=== PATIENT | female | born 1950 | race Asian ===

== ENCOUNTER 2024-01-17 16:24 | Inpatient (IN) | payer OTHER, MEDICAID ==
[~2024-01-17] VITALS: Ht 157.5 cm; Wt 55.8 kg
[2024-01-17 16:27] VITALS: BP_SYST 150; PULSE 92; RESP 18; TEMP 98.3; O2SAT 98
[2024-01-17] MEDS ORDERED: iohexoL 350 mgI/mL, 100 ML INFUS..BTL IV ONE (16:35)
[2024-01-17] MEDS ORDERED: ATOR10TA68 PO (17:13)
[2024-01-17] MEDS ORDERED: ALEN70TA27 PO (17:13)
[2024-01-17] MEDS ORDERED: COLL100 PO (17:13)
[2024-01-17] MEDS ORDERED: CARB200T8 PO (17:13)
[2024-01-17] MEDS ORDERED: ANAS1TAB51 (17:13)
[2024-01-17] MEDS ORDERED: CALC-823 PO (17:13)
[2024-01-17] MEDS ORDERED: AMLO10TA88 PO (17:13)
[2024-01-17] MEDS ORDERED: BISA-140 PO (17:13)
[2024-01-17] MEDS ORDERED: ANAS1TAB51 PO (17:13)
[2024-01-17] MEDS ORDERED: ASPI-1393 PO (17:13)
[2024-01-17 17:20] LABS: BASOPHILS # (AUTO) 0.2 K/uL (0.0-0.2); BASOPHILS % (AUTO) 0.9 % (0.0-2.0); EOSINOPHILS # (AUTO) 0.1 K/uL (0.0-0.4); EOSINOPHILS % (AUTO) 0.4 % (0.0-4.0); HEMATOCRIT 35.2 % (36-48); HEMOGLOBIN 11.9 g/dL (12.0-16.0); LYMPHOCYTES # (AUTO) 3.4 K/uL (1.0-5.5); LYMPHOCYTES % (AUTO) 17.3 % (20.5-51.5); MEAN CORPUSCULAR HEMOGLOBIN 30 pg (27-31); MEAN CORPUSCULAR HGB CONC 34 % (32-36); MEAN CORPUSCULAR VOLUME 90 fL (79.0-98.0); MONOCYTES # (AUTO) 1.4 K/uL (0.0-1.0); MONOCYTES % (AUTO) 7.2 % (1.7-9.3); NEUTROPHILS # (AUTO) 14.7 K/uL (1.8-7.7); NEUTROPHILS % (AUTO) 74.2 % (40.0-70.0); PLATELET COUNT (AUTO) 432 K/uL (130-430); RED BLOOD CELL COUNT(AUTO) 3.93 MIL/uL (4.2-6.2); RED CELL DISTRIBUTION WIDTH 13.5 % (9.0-15.0); WHITE BLOOD COUNT (AUTO) 19.8 K/uL (4.8-10.8)
[2024-01-17] MEDS ORDERED: LEVE500T21 PO (17:23)
[2024-01-17] MEDS ORDERED: LORA-258 PO (17:23)
[2024-01-17] MEDS ORDERED: NITSL SL (17:23)
[2024-01-17] MEDS ORDERED: LOSA100T24 PO (17:23)
[2024-01-17] MEDS ORDERED: METO-442 PO (17:23)
[2024-01-17] MEDS ORDERED: FAMO20TA8 PO (17:23)
[2024-01-17] MEDS ORDERED: OXYIR5 PO (17:23)
[2024-01-17] MEDS ORDERED: MAGN24002 PO (17:26)
[2024-01-17] MEDS ORDERED: SODI1TAB3 PO (17:26)
[2024-01-17 17:35] LABS: HEMOGLOBIN A1C 5.83 % (<5.7); PROTHROMBIN TIME 10.7 SECS (9.5-12.5)
[2024-01-17 17:41] LABS: ANION GAP 7 (5-15); CALCIUM 8.9 mg/dL (8.4-11.0); CARBON DIOXIDE 29 mmol/L (23-29); CHLORIDE 105 mmol/L (98-107); CREATININE 0.56 mg/dL (0.55-1.30); GLUCOSE 128 mg/dL (74-106); SODIUM SERUM 141 mmol/L (136-145); UREA NITROGEN, BLOOD 12 mg/dL (8-21)
[2024-01-17 17:43] LABS: POTASSIUM 2.9 mmol/L (3.5-5.1)
[2024-01-17] MEDS: KCL 40 mEq in 100 mL (PREMIX) 100 ML IV ONE (18:00)
[2024-01-17 19:02] LABS: BILIRUBIN,URINE NEGATIVE (NEGATIVE); BLOOD, URINE NEGATIVE (NEGATIVE); CLARITY/URINE CLEAR (CLEAR); COLOR,URINE YELLOW (YELLOW); GLUCOSE,URINE NEGATIVE (NEGATIVE); KETONES,URINE NEGATIVE (NEGATIVE); LEUKOCYTE ESTERASE ,URINE NEGATIVE (NEGATIVE); NITRITE, URINE NEGATIVE (NEGATIVE); PH,URINE 7.5 (5.0-8.0); PROTEIN URINE NEGATIVE (NEGATIVE); UROBILINOGEN,URINE 0.2 (0.2-1.0)
[2024-01-17 19:11] LABS: BARBITURATE, URINE NEGATIVE (NEG <=200); BENZODIAZEPINE, URINE POSITIVE (NEG <=150); CANNABINOID, URINE NEGATIVE (NEG <=50); COCAINE, URINE NEGATIVE (NEG <=150); METHAMPHETAMINES SCREEN,URINE NEGATIVE (NEG <=500); OPIATE, URINE NEGATIVE (NEG <=100); PHENCYCLIDINE SCREEN,URINE NEGATIVE (NEG <=25); UR TRICYCLIC ANTIDEPRESSANTS NEGATIVE (NEG <=300); URINE AMPHETAMINE NEGATIVE (NEG <=500); URINE METHADONE NEGATIVE (NEG <=200); URINE OXYCODONE SCREEN NEGATIVE (NEG <=100)
[2024-01-17] MEDS ORDERED: KCL 20 mEq in 100 mL (PREMIX) 200 ML IV ONE (19:14)
[2024-01-17 20:40] VITALS: BP_SYST 149; PULSE 90; RESP 16; TEMP 98.5; O2SAT 97
[2024-01-17 20:55] VITALS: BP_SYST 149; PULSE 9; RESP 16; TEMP 98.5; O2SAT 96
[2024-01-17] MEDS: levETIRAcetam 1,000 MG in NS 100 ML IV ONE (22:22)
[2024-01-17] MEDS ORDERED: HYDROcodone/ACETAMIN 5-325 MG TAB (NORCO/ VICODIN) PO PRN (22:45)
[2024-01-17] MEDS ORDERED: BISACODYL 5 MG TABLET.DR (DULCOLAX) PO PRN (22:45)
[2024-01-17] MEDS ORDERED: NALOXONE HCL 0.4 MG/ML AMP (NARCAN) IVP PRN ×2 (22:45)
[2024-01-17] MEDS ORDERED: LORazepam 2 MG/ML VIAL IVP PRN (22:45)
[2024-01-17] MEDS ORDERED: ONDANSETRON HCL 4 MG/2 ML VIAL IVP PRN (22:45)
[2024-01-17] MEDS ORDERED: ACETAMINOPHEN 325 MG TABLET PO PRN (22:45)
[2024-01-17] MEDS ORDERED: NITROGLYCERIN 0.4 MG TAB.SUBL SL PRN (22:45)
[2024-01-17] MEDS ORDERED: HYDROcodone/ACETAMIN 10-325 MG TAB PO PRN (22:45)
[2024-01-18 04:00] VITALS: BP_SYST 130; PULSE 105; RESP 16; TEMP 97.6; O2SAT 96
[2024-01-18] MEDS: NORMAL SALINE 5 ML DISP.SYRIN IVF SCH (05:17)
[2024-01-18 07:39] LABS: BASOPHILS # (AUTO) 0.1 K/uL (0.0-0.2); BASOPHILS % (AUTO) 0.6 % (0.0-2.0); EOSINOPHILS # (AUTO) 0.2 K/uL (0.0-0.4); HEMATOCRIT 35.3 % (36-48); HEMOGLOBIN 11.8 g/dL (12.0-16.0); LYMPHOCYTES # (AUTO) 2.3 K/uL (1.0-5.5); LYMPHOCYTES % (AUTO) 12.7 % (20.5-51.5); MEAN CORPUSCULAR HEMOGLOBIN 30 pg (27-31); MEAN CORPUSCULAR HGB CONC 34 % (32-36); MEAN CORPUSCULAR VOLUME 90 fL (79.0-98.0); MONOCYTES # (AUTO) 1.3 K/uL (0.0-1.0); MONOCYTES % (AUTO) 7.1 % (1.7-9.3); NEUTROPHILS # (AUTO) 14.4 K/uL (1.8-7.7); NEUTROPHILS % (AUTO) 78.6 % (40.0-70.0); PLATELET COUNT (AUTO) 451 K/uL (130-430); RED BLOOD CELL COUNT(AUTO) 3.91 MIL/uL (4.2-6.2); RED CELL DISTRIBUTION WIDTH 13.5 % (9.0-15.0); WHITE BLOOD COUNT (AUTO) 18.4 K/uL (4.8-10.8)
[2024-01-18 08:04] LABS: ANION GAP 13 (5-15); CALCIUM 8.6 mg/dL (8.4-11.0); CARBON DIOXIDE 25 mmol/L (23-29); CHLORIDE 105 mmol/L (98-107); CREATININE 0.51 mg/dL (0.55-1.30); GLUCOSE 136 mg/dL (74-106); SODIUM SERUM 143 mmol/L (136-145); UREA NITROGEN, BLOOD 10 mg/dL (8-21)
[2024-01-18 08:16] LABS: POTASSIUM 2.8 mmol/L (3.5-5.1)
[2024-01-18 08:28] VITALS: BP_SYST 143; PULSE 114; RESP 18; TEMP 98.2; O2SAT 94
[2024-01-18] MEDS ORDERED: SODIUM CHLORIDE 1 GM PO SCH (09:00)
[2024-01-18] MEDS: ASPIRIN 81 MG TABLET(ECOTRIN) PO SCH (09:34)
[2024-01-18] MEDS: LOSARTAN POTASSIUM 50 MG TABLET (COZAAR) PO SCH (09:34)
[2024-01-18] MEDS: ANASTROZOLE 1 MG TABLET (ARIMIDEX) PO SCH (09:35)
[2024-01-18] MEDS: amLODIPine BESYLATE 10 MG TABLET PO SCH (09:35)
[2024-01-18] MEDS: DOCUSATE SODIUM 100 MG CAPSULE PO SCH (09:36)
[2024-01-18] MEDS: METOPROLOL TARTRATE 50 MG TABLET PO SCH (09:36)
[2024-01-18] MEDS: FAMOTIDINE 20 MG TABLET PO SCH (09:36)
[2024-01-18] MEDS: CALCIUM CARBONATE/VITAMIN D3 1 TAB TABLET PO SCH (09:37)
[2024-01-18] MEDS: levETIRAcetam 500 MG TABLET PO SCH (09:37)
[2024-01-18] MEDS: SODIUM CHLORIDE 1,000 MG TABLET PO SCH (09:37)
[2024-01-18 11:12] VITALS: BP_SYST 132; PULSE 105; RESP 16; TEMP 97.1; O2SAT 96
[2024-01-18] MEDS: KCL 40mEq in D5/0.45NS 1000 mL 1,000 ML IV ONE (11:34)
[2024-01-18 15:01] VITALS: BP_SYST 145; PULSE 81; RESP 16; TEMP 96.7; O2SAT 93
[2024-01-18 20:00] VITALS: BP_SYST 145; PULSE 112; RESP 18; TEMP 97.4; O2SAT 95
[2024-01-18] MEDS: ATORVASTATIN 10 MG TABLET PO SCH (20:57)
[2024-01-19 00:11] VITALS: BP_SYST 119; PULSE 110; RESP 18; TEMP 98.2; O2SAT 95
[2024-01-19] MEDS: CEFEPIME 2 GM/VIAL (MAXIPIME) ONE (00:33)
[2024-01-19] MEDS: VANCOMYCIN HCL 1000 MG/VIAL IV ONE (00:33)
[2024-01-19] MEDS: CEFEPIME 2 GM in D5W 100 ML IV SCH ×2 (00:42→13:33)
[2024-01-19] MEDS: VANCOMYCIN HCL 1,000 MG in NS 250 ML IV ONE (01:44)
[2024-01-19 07:03] LABS: BASOPHILS # (AUTO) 0.1 K/uL (0.0-0.2); BASOPHILS % (AUTO) 0.4 % (0.0-2.0); EOSINOPHILS # (AUTO) 0.1 K/uL (0.0-0.4); EOSINOPHILS % (AUTO) 0.7 % (0.0-4.0); HEMATOCRIT 35.3 % (36-48); HEMOGLOBIN 11.9 g/dL (12.0-16.0); LYMPHOCYTES # (AUTO) 2.5 K/uL (1.0-5.5); LYMPHOCYTES % (AUTO) 13.7 % (20.5-51.5); MEAN CORPUSCULAR HEMOGLOBIN 30 pg (27-31); MEAN CORPUSCULAR HGB CONC 34 % (32-36); MEAN CORPUSCULAR VOLUME 90 fL (79.0-98.0); MONOCYTES # (AUTO) 1.4 K/uL (0.0-1.0); MONOCYTES % (AUTO) 7.6 % (1.7-9.3); NEUTROPHILS # (AUTO) 14.1 K/uL (1.8-7.7); NEUTROPHILS % (AUTO) 77.6 % (40.0-70.0); PLATELET COUNT (AUTO) 418 K/uL (130-430); RED CELL DISTRIBUTION WIDTH 13.7 % (9.0-15.0); WHITE BLOOD COUNT (AUTO) 18.1 K/uL (4.8-10.8)
[2024-01-19 07:16] LABS: ANION GAP 12 (5-15); CALCIUM 7.9 mg/dL (8.4-11.0); CARBON DIOXIDE 25 mmol/L (23-29); CHLORIDE 108 mmol/L (98-107); CREATININE 0.65 mg/dL (0.55-1.30); ERYTHROCYTE SEDIMENTATION RATE 50 MM/HR (0-20); GLUCOSE 134 mg/dL (74-106); POTASSIUM 3.8 mmol/L (3.5-5.1); SODIUM SERUM 145 mmol/L (136-145); UREA NITROGEN, BLOOD 10 mg/dL (8-21)
[2024-01-19 08:13] VITALS: BP_SYST 115; PULSE 104; RESP 16; TEMP 97.3; O2SAT 97
[2024-01-19 11:17] VITALS: BP_SYST 102; PULSE 106; RESP 15; TEMP 97.6; O2SAT 93
[2024-01-19] MEDS: CALCIUM GLUC 2 GM/100ML-NACL 100 ML IV ONE (12:55)
[2024-01-19 15:13] VITALS: BP_SYST 144; PULSE 99; RESP 16; TEMP 98.1; O2SAT 96
[2024-01-19 20:45] VITALS: BP_SYST 146; PULSE 103; RESP 20; TEMP 99.9; O2SAT 95
[2024-01-20] MEDS: VANCOMYCIN HCL 750 MG in NS 250 ML IV SCH (00:05)
[2024-01-20 00:10] VITALS: BP_SYST 118; PULSE 83; RESP 18; TEMP 98.5; O2SAT 96
[2024-01-20 06:33] LABS: BASOPHILS # (AUTO) 0.1 K/uL (0.0-0.2); BASOPHILS % (AUTO) 0.5 % (0.0-2.0); EOSINOPHILS # (AUTO) 0.1 K/uL (0.0-0.4); EOSINOPHILS % (AUTO) 0.4 % (0.0-4.0); HEMATOCRIT 33.6 % (36-48); HEMOGLOBIN 11.2 g/dL (12.0-16.0); LYMPHOCYTES # (AUTO) 3.1 K/uL (1.0-5.5); LYMPHOCYTES % (AUTO) 13.6 % (20.5-51.5); MEAN CORPUSCULAR HEMOGLOBIN 30 pg (27-31); MEAN CORPUSCULAR HGB CONC 33 % (32-36); MEAN CORPUSCULAR VOLUME 91 fL (79.0-98.0); MONOCYTES % (AUTO) 8.7 % (1.7-9.3); NEUTROPHILS # (AUTO) 17.4 K/uL (1.8-7.7); PLATELET COUNT (AUTO) 375 K/uL (130-430); RED BLOOD CELL COUNT(AUTO) 3.71 MIL/uL (4.2-6.2); RED CELL DISTRIBUTION WIDTH 13.5 % (9.0-15.0); WHITE BLOOD COUNT (AUTO) 22.6 K/uL (4.8-10.8)
[2024-01-20 06:59] LABS: ALANINE AMINOTRANSFERASE 30 U/L (12-78); ANION GAP 12 (5-15); ASPARTATE AMINOTRANSFERASE 18 U/L (10-37); CALCIUM 8.5 mg/dL (8.4-11.0); CARBON DIOXIDE 23 mmol/L (23-29); CHLORIDE 107 mmol/L (98-107); CREATININE 0.56 mg/dL (0.55-1.30); GLUCOSE 130 mg/dL (74-106); POTASSIUM 3.4 mmol/L (3.5-5.1); SODIUM SERUM 142 mmol/L (136-145); TOTAL BILIRUBIN 0.4 mg/dL (0.0-1.0); TOTAL PROTEIN, SERUM 5.9 g/dL (6.4-8.3); UREA NITROGEN, BLOOD 13 mg/dL (8-21)
[2024-01-20 07:03] LABS: ERYTHROCYTE SEDIMENTATION RATE 53 MM/HR (0-20)
[2024-01-20 07:48] LABS: NEUTROPHILS % (AUTO) 76.8 % (40.0-70.0)
[2024-01-20] MEDS ORDERED: POTASSIUM CHLORIDE 20 MEQ TABLET.ER PO ONE (09:00)
[2024-01-20] MEDS ORDERED: POTASSIUM CHLORIDE 20 MEQ/PKT PACKET PO ONE ×2 (10:15→11:00)
[2024-01-20 11:15] VITALS: BP_SYST 117; PULSE 90; RESP 16; TEMP 97.1; O2SAT 93
[2024-01-20] MEDS: POTASSIUM CHLORIDE 20 MEQ/PKT PACKET PO ONE (12:54)
[2024-01-20] MEDS: DOCUSATE SODIUM 100 MG/10 ML UDC PO ONE (12:54)
[2024-01-20 15:20] VITALS: BP_SYST 119; PULSE 83; RESP 15; TEMP 97.2; O2SAT 94
[2024-01-20 20:00] VITALS: BP_SYST 117; PULSE 92; RESP 18; TEMP 98.3; O2SAT 97
[2024-01-20] MEDS: DOCUSATE SODIUM 100 MG/10 ML UDC PO SCH (21:02)
[2024-01-21] VITALS: BP_SYST 131; PULSE 80; RESP 18; TEMP 97.5; O2SAT 96
[2024-01-21 06:17] LABS: ANION GAP 11 (5-15); CALCIUM 8.3 mg/dL (8.4-11.0); CARBON DIOXIDE 22 mmol/L (23-29); CHLORIDE 108 mmol/L (98-107); CREATININE 0.66 mg/dL (0.55-1.30); GLUCOSE 144 mg/dL (74-106); POTASSIUM 3.5 mmol/L (3.5-5.1); SODIUM SERUM 141 mmol/L (136-145); UREA NITROGEN, BLOOD 17 mg/dL (8-21)
[2024-01-21 06:34] LABS: BASOPHILS # (AUTO) 0.1 K/uL (0.0-0.2); BASOPHILS % (AUTO) 0.3 % (0.0-2.0); EOSINOPHILS # (AUTO) 0.1 K/uL (0.0-0.4); EOSINOPHILS % (AUTO) 0.4 % (0.0-4.0); HEMATOCRIT 32.7 % (36-48); HEMOGLOBIN 10.8 g/dL (12.0-16.0); LYMPHOCYTES % (AUTO) 9.5 % (20.5-51.5); MEAN CORPUSCULAR HEMOGLOBIN 30 pg (27-31); MEAN CORPUSCULAR HGB CONC 33 % (32-36); MEAN CORPUSCULAR VOLUME 90 fL (79.0-98.0); MONOCYTES # (AUTO) 1.5 K/uL (0.0-1.0); MONOCYTES % (AUTO) 7.2 % (1.7-9.3); NEUTROPHILS # (AUTO) 17.5 K/uL (1.8-7.7); NEUTROPHILS % (AUTO) 82.6 % (40.0-70.0); PLATELET COUNT (AUTO) 401 K/uL (130-430); RED BLOOD CELL COUNT(AUTO) 3.63 MIL/uL (4.2-6.2); RED CELL DISTRIBUTION WIDTH 13.9 % (9.0-15.0); WHITE BLOOD COUNT (AUTO) 21.3 K/uL (4.8-10.8)
[2024-01-21 06:38] LABS: ERYTHROCYTE SEDIMENTATION RATE 66 MM/HR (0-20)
[2024-01-21] MEDS ORDERED: GADOBENATE DIMEGLUMINE 529 MG/ML, 5 ML VIAL IV ONE (07:55)
[2024-01-21 08:00] VITALS: BP_SYST 141; PULSE 90; RESP 16; TEMP 97.8; O2SAT 98
[2024-01-21 10:15] VITALS: O2SAT 98
[2024-01-21] MEDS: POTASSIUM CHLORIDE 20 MEQ/PKT PACKET PO SCH (10:18)
[2024-01-21 11:13] VITALS: BP_SYST 137; PULSE 77; RESP 16; TEMP 97; O2SAT 93
[2024-01-21 15:05] VITALS: BP_SYST 114; PULSE 67; RESP 15; TEMP 96.6; O2SAT 92
[2024-01-21 20:00] VITALS: BP_SYST 125; PULSE 109; RESP 18; TEMP 99; O2SAT 94
[2024-01-22 00:23] VITALS: BP_SYST 134; PULSE 81; RESP 18; TEMP 97.4; O2SAT 98
[2024-01-22 06:37] LABS: BASOPHILS # (AUTO) 0.1 K/uL (0.0-0.2); BASOPHILS % (AUTO) 0.5 % (0.0-2.0); EOSINOPHILS # (AUTO) 0.5 K/uL (0.0-0.4); EOSINOPHILS % (AUTO) 2.8 % (0.0-4.0); HEMATOCRIT 33.6 % (36-48); HEMOGLOBIN 11.2 g/dL (12.0-16.0); LYMPHOCYTES # (AUTO) 2.1 K/uL (1.0-5.5); LYMPHOCYTES % (AUTO) 12.9 % (20.5-51.5); MEAN CORPUSCULAR HEMOGLOBIN 30 pg (27-31); MEAN CORPUSCULAR HGB CONC 33 % (32-36); MEAN CORPUSCULAR VOLUME 91 fL (79.0-98.0); MONOCYTES # (AUTO) 1.2 K/uL (0.0-1.0); MONOCYTES % (AUTO) 7.4 % (1.7-9.3); NEUTROPHILS # (AUTO) 12.7 K/uL (1.8-7.7); NEUTROPHILS % (AUTO) 76.4 % (40.0-70.0); PLATELET COUNT (AUTO) 415 K/uL (130-430); RED BLOOD CELL COUNT(AUTO) 3.69 MIL/uL (4.2-6.2); RED CELL DISTRIBUTION WIDTH 14.1 % (9.0-15.0); WHITE BLOOD COUNT (AUTO) 16.5 K/uL (4.8-10.8)
[2024-01-22 06:42] LABS: ERYTHROCYTE SEDIMENTATION RATE 68 MM/HR (0-20)
[2024-01-22 06:59] LABS: ANION GAP 11 (5-15); CALCIUM 8.6 mg/dL (8.4-11.0); CARBON DIOXIDE 23 mmol/L (23-29); CHLORIDE 112 mmol/L (98-107); CREATININE 0.73 mg/dL (0.55-1.30); GLUCOSE 139 mg/dL (74-106); POTASSIUM 3.9 mmol/L (3.5-5.1); SODIUM SERUM 146 mmol/L (136-145); UREA NITROGEN, BLOOD 17 mg/dL (8-21)
[2024-01-22 08:00] VITALS: BP_SYST 147; PULSE 88; RESP 18; TEMP 97.8; O2SAT 98
[2024-01-22 11:10] VITALS: BP_SYST 145; PULSE 107; RESP 16; TEMP 98.4; O2SAT 96
[2024-01-22 12:00] VITALS: BP_SYST 146; PULSE 97; RESP 18; TEMP 97.2; O2SAT 97
[2024-01-22 12:10] VITALS: BP_SYST 146; PULSE 97; RESP 18; TEMP 97.2; O2SAT 99
== END 2024-01-22 13:50 | DRG 871 ==
LOC: SED 16:24 → STU 18:52 → SMU 01-21 11:26
PROVIDERS: ADMIT Preventive Medicine Preventive Medicine/Occupational Environmental Medicine; ATTEND Preventive Medicine Preventive Medicine/Occupational Environmental Medicine
DX: A41.9 Sepsis, unspecified organism (principal); E43 Unspecified severe protein-calorie malnutrition; E87.0 Hyperosmolality and hypernatremia; G93.49 Other encephalopathy; E83.52 Hypercalcemia; M81.0 Age-related osteoporosis without current pathological fracture; I10 Essential (primary) hypertension; G40.909 Epilepsy, unspecified, not intractable, without status epilepticus; E78.5 Hyperlipidemia, unspecified; D64.9 Anemia, unspecified; R73.9 Hyperglycemia, unspecified; K21.9 Gastro-esophageal reflux disease without esophagitis; D75.839 Thrombocytosis, unspecified; E87.6 Hypokalemia; Z86.011 Personal history of benign neoplasm of the brain; Z68.22 Body mass index [BMI] 22.0-22.9, adult; Z79.899 Other long term (current) drug therapy; Z86.73 Personal history of transient ischemic attack (TIA), and cerebral infarction without residual deficits
CPT/HCPCS: 36415; 70450; 70496; 70498; 70553; 71045; 72197; 76830; 76857; 80048; 80053; 80307; 81001; 81003; 83037; 84484; 85025; 85610; 85651; 85730; 86886; 86900; 86901; 87040; 87081; 87086; 92610-GN; 93005; 93306; 95816; 96365; 96366; 97110-GO; 97110-GP; 97112-GO; 97112-GP; 97530-GP; 99291; A9577; G0378; J0692; J1953; J3370; J3480; J7050; J7060; Q9967